=== PATIENT | female | born 1980 | race Caucasian/White ===

== ENCOUNTER 2016-10-09 17:46 | Emergency (ER) | payer OTHER ==
[2016-10-09 18:54] LABS: HEMOGLOBIN 9.8 gm/dl (12.3-15.3); RED BLOOD COUNT 4.27 M/UL (4.00-5.10); WHITE BLOOD COUNT 7.1 K/UL (4.5-11.0)
[2016-10-09 19:18] LABS: BUN/CREATININE RATIO 13 (0-10)
== END 2016-10-09 22:04 | disposition home or self-care (01) ==
LOC: ER1 17:46
PROVIDERS: Emergency Medicine
DX: I10 Essential (primary) hypertension (principal); R07.2 Precordial pain; Z88.0 Allergy status to penicillin
CPT/HCPCS: 71010; 80053; 82550; 82553; 83874; 84484; 85025; 99285

== ENCOUNTER 2021-04-09 14:36 | Emergency (ER) | payer OTHER ==
[~2021-04-09 14:36] MED LIST: FLEXERIL 10 MG10 MG PO; NORCO 5-325 TA1 EACH PO; ZESTRIL40 MG PO
[2021-04-09 15:53] LABS: HEMOGLOBIN 8.4 gm/dl (12.3-15.3); RED BLOOD COUNT 3.89 M/UL (4.00-5.10); WHITE BLOOD COUNT 4.8 K/UL (4.5-11.0)
[2021-04-09 16:36] LABS: BUN/CREATININE RATIO 5 (0-10)
== END 2021-04-09 15:32 | disposition left against medical advice (07) ==
LOC: ER1 14:36
PROVIDERS: Nurse Practitioner
DX: D64.9 Anemia, unspecified (principal); N93.9 Abnormal uterine and vaginal bleeding, unspecified; I10 Essential (primary) hypertension; Z90.49 Acquired absence of other specified parts of digestive tract; F10.20 Alcohol dependence, uncomplicated
CPT/HCPCS: 71045; 80053; 81001; 82272; 82550; 82553; 82607; 82728; 82746; 83540; 83735; 83874; 84484; 84703; 85025; 86850; 86900; 86901; 93005; 99284; G0480; J3411; J3475; J7030